=== PATIENT | female | born 1965 ===

== ENCOUNTER 2016-09-12 16:10 | Emergency (ER) | payer MEDICAID ==
[2016-09-12 16:10] VITALS: BMI 31.3
[2016-09-12 16:17] VITALS: BP 134/87; PULSE 90; RESP 16; TEMP 98.8; O2SAT 98
--- NOTE | 2016-09-12 16:43 | ED PDOC ---
Arrival/HPI - General Chief Complaint: Lower Extremity Problem/Injury Time Seen by Provider: 09/12/16 16:34 Historian: Patient - History of Present Illness Narrative History of Present Illness (Text): 09/12/16 16:34 This 51 yo female presents to this ED c/o left foot pain and swelling x 3 days. Patient denies trauma, skin rash, abscess, erythema, calf pain, lower leg edema, recent travel, recent surgical procedure, weakness, paresthesias, sob, cp , or abnormal gait. Time/Duration: Other Quality: Aching Context: Home Past Medical History - Provider Review Nursing Documentation Reviewed: Yes - Infectious Disease Hx of Infectious Diseases: None - Tetanus Immunization Tetanus Immunization: Unknown - Cardiac Hx Hypertension: Yes - Pulmonary Hx Asthma: Yes - Neurological Hx Neurological Disorder: No - HEENT Hx HEENT Disorder: No - Renal Hx Renal Disorder: No - Endocrine/Metabolic Hx Endocrine Disorders: No - Hematological/Oncological Hx Blood Disorders: No - Integumentary Hx Dermatological Disorder: No - Musculoskeletal/Rheumatological Hx Arthritis: Yes - Gastrointestinal Hx Gastrointestinal Disorders: No - Genitourinary/Gynecological Hx Genitourinary Disorders: No - Psychiatric Hx Depression: No Hx Emotional Abuse: No Hx Physical Abuse: No Hx Substance Use: No - Past Surgical History Past Surgical History: No Previous - Surgical History Other/Comment: BREAST BX - Anesthesia Hx Anesthesia: No - Suicidal Assessment Feels Threatened In Home Enviroment: No Family/Social History - Physician Review Nursing Documentation Reviewed: Yes Family/Social History: No Known Family HX Smoking Status: Never Smoked Hx Alcohol Use: No Hx Substance Use: No Hx Substance Use Treatment: No Allergies/Home Meds Allergies/Adverse Reactions: Allergies No Known Allergies Allergy (Verified 09/12/16 16:14) Home Medications: Home Meds Medication Instructions Recorded Confirmed Lisinopril [Lisinopril] 10 mg PO DAILY 08/01/14 09/12/16 Montelukast [Singulair] 10 mg PO DAILY 08/01/14 09/12/16 Review of Systems - Review of Systems Constitutional: Normal. absent: Fatigue, Weight Change, Fevers Eyes: Normal ENT: Normal Respiratory: Normal. absent: SOB, Cough, Sputum Cardiovascular: Normal Gastrointestinal: Normal Genitourinary Female: Normal Musculoskeletal: Arthralgias Skin: Normal Neurological: Normal Endocrine: Normal Hemo/Lymphatic: Normal Psychiatric: Normal Physical Exam Vital Signs Temp Pulse Resp BP Pulse Ox 09/12/16 16:14 98.8 F 90 16 134/87 98 Temperature: Afebrile Blood Pressure: Normal Pulse: Regular Respiratory Rate: Normal Appearance: Positive for: Well-Appearing, Non-Toxic, Comfortable Pain Distress: None Mental Status: Positive for: Alert and Oriented X 3 - Systems Exam Head: Present: Atraumatic, Normocephalic Pupils: Present: PERRL Extroacular Muscles: Present: EOMI Conjunctiva: Present: Normal Mouth: Present: Moist Mucous Membranes Neck: Present: Normal Range of Motion Respiratory/Chest: Present: Clear to Auscultation, Good Air Exchange. No: Respiratory Distress, Accessory Muscle Use Cardiovascular: Present: Regular Rate and Rhythm, Normal S1, S2. No: Murmurs Back: Present: Normal Inspection Upper Extremity: Present: Normal Inspection, Normal ROM, NORMAL PULSES, Neurovascularly Intact, Capillary Refill < 2s. No: Edema Lower Extremity: Present: NORMAL PULSES, Normal ROM, Tenderness (Mild tenderness over ankle joint, and medial foot. Foot arch is mild collapsed. No plantar fascia tenderness.), Neurovascularly Intact, Capillary Refill < 2 s. No : Edema, CALF TENDERNESS, Cyanosis, Opal's Sign, Erythema, Deformity, Temperature Abnormalties Neurological: Present: GCS=15, CN II-XII Intact, Speech Normal, Motor Func Grossly Intact, Normal Sensory Function, Normal Cerebellar Funct, Norm Deep Tendon Reflexes, Gait Normal, Memory Normal Skin: Present: Warm, Dry, Normal Color. No: Rashes Psychiatric: Present: Alert, Oriented x 3 Medical Decision Making ED Course and Treatment: 09/12/16 17:29 Re-evaluation. Patient feels better. Discussed results and plan with patient who expresses understanding. All questions answered and there is agreement with the plan to discharge home with instructions. Patient stable for discharge. Return if symptoms persist or worsen. Patient came c/o foot and ankle pain and swelling. Physical exam demonstrate mild tenderness and swelling on ankle joint. Sears test was negative. No calf pain, or lower leg swelling. No evidence of DVT or leg cellulitis. Ankle joint pain is most likely due to strain. Patient was recommended to return to ED if she develops swelling lower leg, calf pain, skin rash, or worsen on pain. Re-evaluation Time: 17:29 Reassessment Condition: Re-examined, Improved - RAD Interpretation Narrative RAD Interpretations (Text): 09/12/16 17:29 ankle x-rays: No Fx or sublux. Foot x-rays: No Fx or sublux. (+) bone spur Radiology Orders: 09/12/16 16:35 ANKLE LEFT 3 VIEWS ROUTINE [RAD] Stat FOOT LEFT 3 VIEWS ROUTINE [RAD] Stat - Medication Orders Current Medication Orders: Discontinued Medications Ketorolac Tromethamine (Toradol) 30 mg IM STAT STA Stop: 09/12/16 16:36 Last Admin: 09/12/16 16:40 Dose: 30 mg Disposition/Present on Arrival - Present on Arrival Any Indicators Present on Arrival: No History of DVT/PE: No History of Uncontrolled Diabetes: No Urinary Catheter: No History of Decub. Ulcer: No History Surgical Site Infection Following: None - Disposition Have Diagnosis and Disposition been Completed?: Yes Diagnosis: Foot pain, Ankle pain Disposition: HOME/ ROUTINE Disposition Time: 17:30 Patient Plan: Discharge Condition: GOOD Discharge Instructions (ExitCare): Arthralgia (ED) Additional Instructions: Call private doctor for follow up visit in 1-2 days. Take medication as instructed. Return to emergency if symptoms worsen. Remove monica bandage at bedtime. Prescriptions: Acetaminophen with Codeine [Tylenol with Codeine #3 Tablet] 1 each PO Q6H PRN # 10 tablet PRN Reason: Pain, Severe (8-10) Indomethacin [Indocin] 50 mg PO TID PRN #20 cap PRN Reason: Pain, Severe (8-10) Referrals: Anselmo Hancock MD [Primary Care Provider] - Follow up with primary Nicanor Guevara DPM [Staff Provider] - Follow up with primary Forms: WORK NOTE
--- NOTE | 2016-09-13 09:05 | RAD ---
PROCEDURE: Left Foot Radiographs. HISTORY: pain COMPARISON: None. FINDINGS: BONES: Bone alignment and mineralization are normal. No acute fracture or bone destruction. JOINTS: Normal. SOFT TISSUES: Normal. OTHER FINDINGS: None. IMPRESSION: No acute fracture or dislocation.
--- NOTE | 2016-09-13 09:06 | RAD ---
PROCEDURE: Left Ankle Radiographs. HISTORY: pain COMPARISON: None FINDINGS: BONES: Normal. No fracture. JOINTS: Normal. No osteoarthritis. Ankle mortise maintained. Talar dome intact SOFT TISSUES: There is mild medial soft tissue swelling. OTHER FINDINGS: None. IMPRESSION: No acute fracture or dislocation. Mild medial soft tissue swelling.
== END 2016-09-12 17:42 | disposition home or self-care (01) ==
LOC: ED 16:10
DX: M79.672 Pain in left foot (principal)
CPT/HCPCS: 73610; 73630; 96372; 99283; J1885

== ENCOUNTER 2017-03-27 15:56 | Emergency (ER) | payer MEDICAID ==
[2017-03-27 15:56] VITALS: BMI 31.3
[2017-03-27 16:22] VITALS: RESP 18; TEMP 98.2; O2SAT 98
--- NOTE | 2017-03-27 16:26 | ED PDOC ---
Arrival/HPI - General Time Seen by Provider: 03/27/17 16:09 Historian: Patient - History of Present Illness Narrative History of Present Illness (Text): 03/27/17 16:26 This 51 yo female presents to this ED c/o right lower back pain x 2 days. Patient stated she slipped and fell on her buttocks. Patient stated pain does not let her sleep well. Patient denies other somatic symptoms. Denies weakness, paresthesias, GI/ incontinence, saddle anesthesias, urinary retention, or abnormal gait. Time/Duration: Other (2 days) Quality: Aching Context: Home Past Medical History - Provider Review Nursing Documentation Reviewed: Yes - Infectious Disease Hx of Infectious Diseases: None - Tetanus Immunization Tetanus Immunization: Unknown - Cardiac Hx Hypertension: Yes - Pulmonary Hx Asthma: Yes - Neurological Hx Neurological Disorder: No - HEENT Hx HEENT Disorder: No - Renal Hx Renal Disorder: No - Endocrine/Metabolic Hx Endocrine Disorders: No - Hematological/Oncological Hx Blood Disorders: No - Integumentary Hx Dermatological Disorder: No - Musculoskeletal/Rheumatological Hx Arthritis: Yes - Gastrointestinal Hx Gastrointestinal Disorders: No - Genitourinary/Gynecological Hx Genitourinary Disorders: No - Psychiatric Hx Depression: No Hx Emotional Abuse: No Hx Physical Abuse: No Hx Substance Use: No - Past Surgical History Past Surgical History: No Previous - Surgical History Other/Comment: BREAST BX - Anesthesia Hx Anesthesia: No - Suicidal Assessment Feels Threatened In Home Enviroment: No Family/Social History - Physician Review Nursing Documentation Reviewed: Yes Family/Social History: Other (noncontributory) Smoking Status: Never Smoked Hx Alcohol Use: No Hx Substance Use: No Hx Substance Use Treatment: No Allergies/Home Meds Allergies/Adverse Reactions: Allergies No Known Allergies Allergy (Verified 09/12/16 16:14) Home Medications: Home Meds Medication Instructions Recorded Confirmed Lisinopril [Lisinopril] 10 mg PO DAILY 08/01/14 09/12/16 Montelukast [Singulair] 10 mg PO DAILY 08/01/14 09/12/16 Review of Systems - Review of Systems Constitutional: Normal. absent: Fatigue, Weight Change, Fevers Eyes: Normal ENT: Normal Respiratory: Normal. absent: SOB, Cough, Sputum Cardiovascular: Normal Gastrointestinal: Normal. absent: Abdominal Pain, Nausea, Vomiting Genitourinary Female: Normal. absent: Dysuria, Frequency, Hematuria, Vaginal Bleeding, Vaginal Discharge Musculoskeletal: Back Pain. absent: Neck Pain, Myalgias Skin: Normal. absent: Rash Neurological: Normal. absent: Headache, Dizziness, Focal Weakness, Gait Changes , Speech Changes, Facial Droop, Disequilibrium, Seizure Endocrine: Normal Hemo/Lymphatic: Normal Psychiatric: Normal Physical Exam Vital Signs Temp Pulse Resp BP Pulse Ox 03/27/17 17:32 78 18 128/71 98 03/27/17 16:21 98.2 F 85 18 132/75 98 Temperature: Afebrile Blood Pressure: Normal Pulse: Regular Respiratory Rate: Normal Appearance: Positive for: Well-Appearing, Non-Toxic, Comfortable Pain Distress: None Mental Status: Positive for: Alert and Oriented X 3 - Systems Exam Head: Present: Atraumatic, Normocephalic Pupils: Present: PERRL Extroacular Muscles: Present: EOMI Conjunctiva: Present: Normal Mouth: Present: Moist Mucous Membranes Neck: Present: Normal Range of Motion Respiratory/Chest: No: Tender to Palpation Abdomen: No: Tenderness Back: Present: Normal Inspection, Paraspinal Tenderness (mild right paravertebral tenderness. No vertebral point tenderness. No vertebral step off.). No: CVA Tenderness, Midline Tenderness, Pain with Leg Raise Upper Extremity: Present: Normal Inspection, Normal ROM Lower Extremity: Present: Normal Inspection, Normal ROM Neurological: Present: GCS=15, CN II-XII Intact, Speech Normal, Motor Func Grossly Intact, Normal Sensory Function, Normal Cerebellar Funct, Gait Normal Skin: Present: Warm, Dry, Normal Color. No: Rashes Psychiatric: Present: Alert, Oriented x 3, Normal Insight, Normal Concentration Medical Decision Making ED Course and Treatment: 03/27/17 18:18 Patient came c/o lower back pain after mechanical fall. Patient denies other somatic complains. LS x-rays was no fracture or subluxation. Pain has improved with toradol IM. Patient requested muscle relaxer, and pain medication but not NSAIDS. Patient was recommended to return to emergency if pain worsen. Or if new symptoms arise. Re-evaluation Time: 18:18 Reassessment Condition: Re-examined, Improved - RAD Interpretation Narrative RAD Interpretations (Text): 03/27/17 18:18 LS x-rays: No fracture or dislocation Radiology Orders: 03/27/17 16:55 LS SPINE WITH OBL > 18 YRS OLD [RAD] Stat - Medication Orders Current Medication Orders: Discontinued Medications Ketorolac Tromethamine (Toradol) 60 mg IM STAT STA Stop: 03/27/17 16:57 Last Admin: 03/27/17 17:30 Dose: 60 mg MAR Pain Assessment Document 03/27/17 17:30 CNR (Rec: 03/27/17 17:31 CNR [id number]) Pain Reassessment Is this a pain reassessment? Yes IM Administration Charges Document 03/27/17 17:30 CNR (Rec: 03/27/17 17:31 CNR [id number]) Injection Site MAR Injection Site Right Gluteus Artem Charges for Administration # of IM Administrations 1 Disposition/Present on Arrival - Present on Arrival Any Indicators Present on Arrival: No History of DVT/PE: No History of Uncontrolled Diabetes: No Urinary Catheter: No History Surgical Site Infection Following: None - Disposition Have Diagnosis and Disposition been Completed?: Yes Diagnosis: Back pain Disposition: HOME/ ROUTINE Disposition Time: 18:21 Patient Plan: Discharge Condition: IMPROVED Discharge Instructions (ExitCare): Back Pain (ED) Additional Instructions: Llame a sanchez doctor general para un seguimiento medico. [place] [facility] sido prescriptas con comida. Regrese a la emergencia si dolor aumenta . No maneje sanchez silvano o utilize machinas cuando love tomando medicamentos de dolor or relajador muscular. Prescriptions: Acetaminophen with Codeine [Tylenol with Codeine #3 Tablet] 1 each PO Q6H PRN # 10 tablet PRN Reason: Pain, Severe (8-10) Methocarbamol [Robaxin-750] 750 mg PO TID #21 tab Referrals: PO-MO Kevan Req, [Non-Staff] - Follow up with primary [facility] [Outside] - Follow up with primary [facility] [place] [Outside] - Follow up with primary Forms: [employer] (Moroccan)
[2017-03-27 17:33] VITALS: BP 128/71; PULSE 78
--- NOTE | 2017-03-28 08:02 | RAD ---
PROCEDURE: Radiographs of the Lumbar Spine. HISTORY: pain s/p fall COMPARISON: No prior. FINDINGS: BONES: Normal alignment. No listhesis. No fracture. DISC SPACES: Unremarkable. OTHER FINDINGS: None. IMPRESSION: Unremarkable radiographs of the lumbar spine.
== END 2017-03-27 18:46 | disposition home or self-care (01) ==
LOC: ED 15:56
DX: M54.5 Low back pain (principal); I10 Essential (primary) hypertension
CPT/HCPCS: 72110; 96372; 99283; J1885

== ENCOUNTER 2018-01-06 13:22 | Emergency (ER) | payer MEDICAID, OTHER ==
[2018-01-06 15:27] VITALS: BMI 32.8
[2018-01-06] MEDS ORDERED: Albuterol-Ipratrop 3 mg / 0.5 (3 ml) UD IH STA ×2 (15:57→17:25)
--- NOTE | 2018-01-06 16:46 | ED PDOC ---
Arrival/HPI - General Chief Complaint: Cough, Cold, Congestion Time Seen by Provider: 01/06/18 15:56 Historian: Patient - History of Present Illness Narrative History of Present Illness (Text): 01/06/18 16:43 52yo female with pmhx of Asthma who present with 2days history of nonproductive cough, chest congestion and fever. States she used her inhaler yesterday with mild relieve. Denies sick contact, travel, nausea, vomiting, chest pain, SOB, any other complaint. she is not steroid dependent. never intubated. Past Medical History - Provider Review Nursing Documentation Reviewed: Yes - Infectious Disease Hx of Infectious Diseases: None - Tetanus Immunization Tetanus Immunization: Unknown - Cardiac Hx Hypertension: Yes - Pulmonary Hx Asthma: Yes - Neurological Hx Neurological Disorder: No - HEENT Hx HEENT Disorder: No - Renal Hx Renal Disorder: No - Endocrine/Metabolic Hx Endocrine Disorders: No - Hematological/Oncological Hx Blood Disorders: No - Integumentary Hx Dermatological Disorder: No - Musculoskeletal/Rheumatological Hx Arthritis: Yes - Gastrointestinal Hx Gastrointestinal Disorders: No - Genitourinary/Gynecological Hx Genitourinary Disorders: No - Psychiatric Hx Depression: No Hx Emotional Abuse: No Hx Physical Abuse: No Hx Substance Use: No - Past Surgical History Past Surgical History: No Previous - Surgical History Other/Comment: BREAST BX - Anesthesia Hx Anesthesia: No - Suicidal Assessment Feels Threatened In Home Enviroment: No Family/Social History - Physician Review Nursing Documentation Reviewed: Yes Family/Social History: Unknown Family HX Smoking Status: Never Smoked Hx Alcohol Use: No Hx Substance Use: No Hx Substance Use Treatment: No Allergies/Home Meds Allergies/Adverse Reactions: Allergies No Known Allergies Allergy (Verified 01/06/18 15:24) Home Medications: Home Meds Medication Instructions Recorded Confirmed Lisinopril 10 mg PO DAILY 08/01/14 09/12/16 RX: Montelukast [Singulair] 10 mg PO DAILY 08/01/14 09/12/16 Review of Systems - Physician Review All systems were reviewed & negative as marked: Yes - Review of Systems Constitutional: Fevers Eyes: Normal ENT: Normal Respiratory: Cough Cardiovascular: Normal Gastrointestinal: Normal Genitourinary Female: Normal Musculoskeletal: Normal Skin: Normal Neurological: Normal Endocrine: Normal Hemo/Lymphatic: Normal Psychiatric: Normal Physical Exam Vital Signs Reviewed: Yes Vital Signs Temp Pulse Resp BP Pulse Ox 01/06/18 18:25 98.3 F 88 19 98 01/06/18 17:31 98.1 F 81 16 113/67 99 Temperature: Afebrile Blood Pressure: Normal Pulse: Regular Respiratory Rate: Normal Appearance: Positive for: Well-Appearing, Non-Toxic, Comfortable Pain Distress: None Mental Status: Positive for: Alert and Oriented X 3 - Systems Exam Head: Present: Atraumatic, Normocephalic Pupils: Present: PERRL Extroacular Muscles: Present: EOMI Conjunctiva: Present: Normal Mouth: Present: Moist Mucous Membranes Neck: Present: Normal Range of Motion Respiratory/Chest: Present: Good Air Exchange, Wheezes (Expiratory wheeze at the bases). No: Respiratory Distress, Accessory Muscle Use, Decreased Breath Sounds, Rales, Retracting, Rhonchi, Tachypneic Cardiovascular: Present: Regular Rate and Rhythm, Normal S1, S2. No: Murmurs Abdomen: No: Tenderness, Distention, Peritoneal Signs Back: Present: Normal Inspection Upper Extremity: Present: Normal Inspection. No: Cyanosis, Edema Lower Extremity: Present: Normal Inspection. No: Edema Neurological: Present: GCS=15, CN II-XII Intact, Speech Normal Skin: Present: Warm, Dry, Normal Color. No: Rashes Psychiatric: Present: Alert, Oriented x 3, Normal Insight, Normal Concentration Medical Decision Making ED Course and Treatment: 01/07/18 17:48 PT presented for stated history. Not hypoxic and hemodynamically stable. CXR NAD Her wheezing resolved in ED on r evaluation s/p medication. she was DC home with [facility]. Advised to continue with her albuterol inhaler as needed. Referred to her PMD - RAD Interpretation Radiology Orders: 01/06/18 16:07 CHEST PORTABLE [RAD] Stat - Medication Orders Current Medication Orders: Discontinued Medications Albuterol/Ipratropium (Duoneb 3 Mg/0.5 Mg (3 Ml) Ud) 3 ml IH STAT STA Stop: 01/06/18 15:58 Last Admin: 01/06/18 16:10 Dose: 3 ml Albuterol/Ipratropium (Duoneb 3 Mg/0.5 Mg (3 Ml) Ud) 3 ml IH STAT STA Stop: 01/06/18 17:26 Last Admin: 01/06/18 18:04 Dose: 3 ml Prednisone (Prednisone Tab) 60 mg PO STAT ONE Stop: 01/06/18 16:09 Last Admin: 01/06/18 17:30 Dose: 60 mg Disposition/Present on Arrival - Present on Arrival Any Indicators Present on Arrival: No History of DVT/PE: No History of Uncontrolled Diabetes: No Urinary Catheter: No History of Decub. Ulcer: No History Surgical Site Infection Following: None - Disposition Have Diagnosis and Disposition been Completed?: Yes Diagnosis: Asthma exacerbation Disposition: HOME/ ROUTINE Disposition Time: 18:20 Patient Plan: Discharge Condition: STABLE Discharge Instructions (ExitCare): Asthma in Adults Additional Instructions: Follow up with your Doctor Return to ED for any new or worsening symptoms Prescriptions: RX: Prednisone 50 mg PO DAILY #5 tab Referrals: Mirna Eduardo MD [Medical Doctor] - Follow up with primary Forms: [employer] (Greenlandic)
[2018-01-06 17:31] VITALS: BP 113/67
--- NOTE | 2018-01-06 17:35 | RAD ---
Date of service: 01/06/2018 HISTORY: cough/SOB COMPARISON: 11/24/2012. FINDINGS: LUNGS: The lungs are well inflated and clear. PLEURA: No significant pleural effusion identified, no pneumothorax apparent. CARDIOVASCULAR: Normal. OSSEOUS STRUCTURES: No significant abnormalities. VISUALIZED UPPER ABDOMEN: Normal. OTHER FINDINGS: None. IMPRESSION: No active pulmonary disease.
[2018-01-06 18:26] VITALS: PULSE 88; RESP 19; TEMP 98.3; O2SAT 98
== END 2018-01-06 18:26 | disposition home or self-care (01) ==
LOC: ED 13:22
DX: J45.901 Unspecified asthma with (acute) exacerbation (principal); I10 Essential (primary) hypertension

== ENCOUNTER 2018-01-28 20:35 | Emergency (ER) | payer OTHER ==
[2018-01-28 21:00] VITALS: BMI 32.8
[2018-01-28 21:03] VITALS: TEMP 97.8
[2018-01-28] MEDS ORDERED: Albuterol-Ipratrop 3 mg / 0.5 (3 ml) UD ONE (21:50)
--- NOTE | 2018-01-28 21:51 | ED PDOC ---
Arrival/HPI - General Historian: Patient - History of Present Illness Narrative History of Present Illness (Text): 01/28/18 21:48 52 year old female, whose past medical history includes asthma, presents to the emergency department with asthma exacerbation, since today. Patient states her asthma has been bothering her today. Patient informs taking her nebulizer this morning with no effect on her symptoms. Patient also informs of an associated cough. Patient denies any fever, chills, shortness of breath, chest pain, or any other complaints. Time/Duration: 24 hours <Kary Rinaldi PA-C - Last Filed: 01/29/18 16:42> <Sukumar Devi - Last Filed: 01/30/18 06:10> - General Chief Complaint: Shortness Of Breath Time Seen by Provider: 01/28/18 21:43 Past Medical History - Provider Review Nursing Documentation Reviewed: Yes - Infectious Disease Hx of Infectious Diseases: None - Tetanus Immunization Tetanus Immunization: Unknown - Cardiac Hx Cardiac Disorders: Yes Hx Hypertension: Yes - Pulmonary Hx Respiratory Disorders: Yes Hx Asthma: Yes - Neurological Hx Neurological Disorder: No - HEENT Hx HEENT Disorder: No - Renal Hx Renal Disorder: No - Endocrine/Metabolic Hx Endocrine Disorders: No - Hematological/Oncological Hx Blood Disorders: No - Integumentary Hx Dermatological Disorder: No - Musculoskeletal/Rheumatological Hx Musculoskeletal Disorders: Yes Hx Arthritis: Yes - Gastrointestinal Hx Gastrointestinal Disorders: No - Genitourinary/Gynecological Hx Genitourinary Disorders: No - Psychiatric Hx Psychophysiologic Disorder: No Hx Depression: No Hx Emotional Abuse: No Hx Physical Abuse: No Hx Substance Use: No - Past Surgical History Past Surgical History: No Previous - Surgical History Other/Comment: BREAST BX - Anesthesia Hx Anesthesia: No - Suicidal Assessment Feels Threatened In Home Enviroment: No <Kary Rinaldi PA-C - Last Filed: 01/29/18 16:42> Family/Social History - Physician Review Nursing Documentation Reviewed: Yes Family/Social History: No Known Family HX Smoking Status: Never Smoked Hx Alcohol Use: No Hx Substance Use: No Hx Substance Use Treatment: No <Kary Rinaldi PA-C - Last Filed: 01/29/18 16:42> Allergies/Home Meds <Kary Rinaldi PA-C - Last Filed: 01/29/18 16:42> <Sukumar Devi - Last Filed: 01/30/18 06:10> Allergies/Adverse Reactions: Allergies No Known Allergies Allergy (Verified 01/28/18 21:00) Home Medications: Home Meds Medication Instructions Recorded Confirmed Lisinopril 10 mg PO DAILY 08/01/14 01/28/18 RX: Montelukast [Singulair] 10 mg PO DAILY 08/01/14 01/28/18 Review of Systems - Physician Review All systems were reviewed & negative as marked: Yes - Review of Systems Constitutional: absent: Fevers Respiratory: Cough, Wheezing (asthma exacerbation). absent: SOB Cardiovascular: absent: Chest Pain <Kary Rinaldi PA-C - Last Filed: 01/29/18 16:42> Physical Exam Vital Signs Reviewed: Yes Vital Signs Temp Pulse Resp BP Pulse Ox 01/28/18 21:02 97.8 F 91 H 18 132/87 95 Temperature: Afebrile Blood Pressure: Normal Pulse: Regular Respiratory Rate: Normal Appearance: Positive for: Well-Appearing, Non-Toxic, Comfortable Pain Distress: None Mental Status: Positive for: Alert and Oriented X 3 - Systems Exam Head: Present: Atraumatic, Normocephalic Pupils: Present: PERRL Extroacular Muscles: Present: EOMI Conjunctiva: Present: Normal Mouth: Present: Moist Mucous Membranes Neck: Present: Normal Range of Motion Respiratory/Chest: Present: Wheezes (Bilateral Expiratory Wheezing) Cardiovascular: Present: Regular Rate and Rhythm, Normal S1, S2. No: Murmurs Abdomen: No: Tenderness, Distention, Peritoneal Signs Back: Present: Normal Inspection Upper Extremity: Present: Normal Inspection. No: Cyanosis, Edema Lower Extremity: Present: Normal Inspection. No: Edema Neurological: Present: GCS=15, CN II-XII Intact, Speech Normal Skin: Present: Warm, Dry, Normal Color. No: Rashes Psychiatric: Present: Alert, Oriented x 3, Normal Insight, Normal Concentration <Kary Rinaldi PA-C - Last Filed: 01/29/18 16:42> Vital Signs Temp Pulse Resp BP Pulse Ox 01/29/18 00:02 89 19 112/62 100 01/28/18 21:02 97.8 F 91 H 18 132/87 95 <Sukumar Devi - Last Filed: 01/30/18 06:10> Medical Decision Making ED Course and Treatment: 01/28/18 21:53 Impression: 52 year old female presents with asthma exacerbation. Plan: -- Duoneb -- Prednisone -- Reassess and disposition Prior Visits: Notes and results from previous visits were reviewed. Patient had a normal CXR on 01/06/18. Progress Notes: 01/28/18 23:45 On re-evaluation, patient reports improvement of symptoms, denies any CP, SOB. On exam, patient remains AAOx3, in no acute distress, speaking in full sentences. Lungs clear to auscultation, cardiac RRR, repeat neuro exam shows no focal findings. Diagnosis of acute asthma exacerbation d/w the patient. Based on history, exam and diagnostic results, plan will be for outpatient follow up. Patient instructed to follow-up with the clinic in 1-2 days without fail. Advised to take medication as prescribed. Return to the emergency room at any time for any new or worsening symptoms. Patient states she fully agrees with and understands discharge instructions. States that she agrees with the plan and disposition. Verbalized and repeated discharge instructions and plan. I have given the patient opportunity to ask any additional questions. - Medication Orders Current Medication Orders: Albuterol/Ipratropium (Duoneb 3 Mg/0.5 Mg (3 Ml) Ud) 3 ml IH Q15M [facility] Stop: 01/28/18 22:16 Discontinued Medications Prednisone (Prednisone Tab) 60 mg PO STAT STA Stop: 01/28/18 21:44 <Kary Rinaldi PA-C - Last Filed: 01/29/18 16:42> ED Course and Treatment: 01/30/18 06:10 The documented history was done by the physician product development director. The documented physical exam was done by the physician product development director. The documented procedures were done by the physician product development director, I was available for consultation during the PA/TEXTILE SCIENCE TECHNICIAN evaluation. The chart was reviewed by me, and I agree with the management and plan. - Medication Orders Current Medication Orders: Discontinued Medications Albuterol/Ipratropium (Duoneb 3 Mg/0.5 Mg (3 Ml) Ud) 3 ml IH Q15M [facility]OS[facility] Stop: 01/28/18 22:16 Last Admin: 01/28/18 22:19 Dose: 3 ml Prednisone (Prednisone Tab) 60 mg PO STAT STA Stop: 01/28/18 21:44 Last Admin: 01/28/18 22:19 Dose: 60 mg <Sukumar Devi - Last Filed: 01/30/18 06:10> - PA / TEXTILE SCIENCE TECHNICIAN / Resident Statement MD/DO has reviewed & agrees with the documentation as recorded. - Scribe Statement The provider has reviewed the documentation as recorded by the Rosa Rios Provider Scribe Attestation: All medical record entries made by the Mariibnolan were at my direction and personally dictated by me. I have reviewed the chart and agree that the record accurately reflects my personal performance of the history, physical exam, medical decision making, and the department course for this patient. I have also personally directed, reviewed, and agree with the discharge instructions and disposition. <Kary Rinaldi PA-C - Last Filed: 01/29/18 16:42> Disposition/Present on Arrival - Present on Arrival Any Indicators Present on Arrival: No History of DVT/PE: No History of Uncontrolled Diabetes: No Urinary Catheter: No History of Decub. Ulcer: No History Surgical Site Infection Following: None - Disposition Have Diagnosis and Disposition been Completed?: Yes Disposition Time: 23:45 Patient Plan: Discharge <Kary Rinaldi PA-C - Last Filed: 01/29/18 16:42> <Sukumar Devi - Last Filed: 01/30/18 06:10> - Disposition Diagnosis: Asthma Disposition: HOME/ ROUTINE Condition: IMPROVED Discharge Instructions (ExitCare): Asthma in Adults Additional Instructions: Thank you for letting us take care of you today. You were treated for asthma. The emergency medical care you received today was directed at your acute symptoms. If you were prescribed any medication, please fill it and take as directed. It may take several days for your symptoms to resolve. Return to the Emergency Department if your symptoms worsen, do not improve, or if you have any other problems. Please contact your doctor in 2 days for re-evaluation and follow up / or call one of the physicians/clinics you have been referred to that are listed on the Patient Visit Information form that is included in your discharge packet. Bring any paperwork you were given at discharge with you along with any medications you are taking to your follow up visit. Our treatment cannot replace ongoing medical care by a primary care provider (PCP) outside of the emergency department. Thank you for allowing the [facility] team to be part of your care today. Prescriptions: Methylprednisolone [Medrol Dose Pack (21 tabs)] 4 mg PO DAILY #21 mg Referrals: [facility] [Outside] - Follow up with primary Forms: [employer] (Ukrainian), WORK NOTE
[2018-01-28] MEDS: Albuterol-Ipratrop 3 mg / 0.5 (3 ml) UD IH SCH ×3 (21:53→22:19)
[2018-01-29 00:04] VITALS: BP 112/62; PULSE 89; RESP 19; O2SAT 100
== END 2018-01-29 00:02 | disposition home or self-care (01) ==
LOC: ED 20:35
DX: J45.909 Unspecified asthma, uncomplicated (principal)

== ENCOUNTER 2018-03-22 14:46 | Emergency (ER) | payer OTHER ==
[2018-03-22 14:47] VITALS: BMI 32.8
[2018-03-22 14:53] VITALS: RESP 18; TEMP 98.7
[2018-03-22] MEDS: Albuterol-Ipratrop 3 mg / 0.5 (3 ml) UD IH SCH ×3 (15:35→16:02)
--- NOTE | 2018-03-22 15:40 | ED PDOC ---
Arrival/HPI - General Historian: Patient - History of Present Illness Narrative History of Present Illness (Text): 03/22/18 15:33 52 y o female Past medical history asthma, Hypertension, presents to the emergency department complaining of worsening shortness of breath over the past 3 days. Denies any inciting factors but states that she has been walking outside in the cold weather. States she uses her Ventolin inhaler twice daily, did not increase frequency of medication since onset of symptoms. Has been doing nebulizer treatments daily for the past 3 days, last did treatment this am which helped only a little with her symptoms. States she had her last asthma exace rbation 1 mo prior and was seen in emergency department also, and given prednisone. Denies hx of being intubated in the past. Denies hx sick contacts or recent antibiotic use. Denies headache, dizziness, chest pain, n/v/d/c, abd pain, urinary complaints, or other symptoms. Past medical history: asthma, Hypertension PSurgHx: denies Allergies: NKDA Home meds: Montelukast 10 mg daily, Ventolin inhaler bid, Nebulizer prn, Lisinopril 10 mg daily Fam hx: denies Soc hx: denies smoking, EtOH, or illicit drug use PMD: [facility] Time/Duration: Other (3 days) Symptom Onset: Gradual Symptom Course: Worsening Quality: Tightness Severity Level: Severe Activities at Onset: Rest, Light Context: Exertion, Home <Ken Lindsey - Last Filed: 03/22/18 17:21> <Jose Enrique Sanchez - Last Filed: 03/23/18 13:00> - General Chief Complaint: Respiratory Distress Time Seen by Provider: 03/22/18 14:48 Past Medical History - Provider Review Nursing Documentation Reviewed: Yes - Travel History Have you recently traveled outside [place] w/in the past 3 mons?: No - Infectious Disease Hx of Infectious Diseases: None - Tetanus Immunization Tetanus Immunization: Unknown - Cardiac Hx Cardiac Disorders: Yes Hx Hypertension: Yes - Pulmonary Hx Respiratory Disorders: Yes Hx Asthma: Yes - Neurological Hx Neurological Disorder: No - HEENT Hx HEENT Disorder: No - Renal Hx Renal Disorder: No - Endocrine/Metabolic Hx Endocrine Disorders: No - Hematological/Oncological Hx Blood Disorders: No - Integumentary Hx Dermatological Disorder: No - Musculoskeletal/Rheumatological Hx Musculoskeletal Disorders: Yes Hx Arthritis: Yes - Gastrointestinal Hx Gastrointestinal Disorders: No - Genitourinary/Gynecological Hx Genitourinary Disorders: No - Psychiatric Hx Psychophysiologic Disorder: No Hx Depression: No Hx Emotional Abuse: No Hx Physical Abuse: No Hx Substance Use: No - Past Surgical History Past Surgical History: No Previous - Surgical History Other/Comment: BREAST BX - Anesthesia Hx Anesthesia: No - Suicidal Assessment Feels Threatened In Home Enviroment: No <Ken Lindsey - Last Filed: 03/22/18 17:21> Family/Social History - Physician Review Nursing Documentation Reviewed: Yes Family/Social History: No Known Family HX Smoking Status: Never Smoked Hx Alcohol Use: No Hx Substance Use: No Hx Substance Use Treatment: No <Ken Lindsey - Last Filed: 03/22/18 17:21> Allergies/Home Meds <Ken Lindsey - Last Filed: 03/22/18 17:21> <Jose Enrique Sanchez - Last Filed: 03/23/18 13:00> Allergies/Adverse Reactions: Allergies No Known Allergies Allergy (Verified 03/22/18 14:53) Home Medications: Home Meds Medication Instructions Recorded Confirmed RX: Montelukast [Singulair] 10 mg PO DAILY 08/01/14 03/22/18 RX: Lisinopril [Zestril] 10 mg PO DAILY 03/22/18 03/22/18 Review of Systems - Physician Review All systems were reviewed & negative as marked: Yes - Review of Systems Constitutional: Fatigue. absent: Fevers, Night Sweats Eyes: absent: Vision Changes Respiratory: SOB, Wheezing. absent: Cough, Sputum Cardiovascular: MARQUEZ. absent: Chest Pain, Palpitations, Edema Gastrointestinal: absent: Abdominal Pain, Stool Changes, Constipation, Diarrhea, Nausea, Vomiting Musculoskeletal: absent: Back Pain, Myalgias Skin: absent: Rash, Pruritis Neurological: absent: Headache, Dizziness, Focal Weakness Endocrine: absent: Diaphoresis Hemo/Lymphatic: absent: Adenopathy <Ken Lindsey - Last Filed: 03/22/18 17:21> Physical Exam Vital Signs Reviewed: Yes Vital Signs Temp Pulse Resp BP Pulse Ox 03/22/18 14:50 98.7 F 103 H 18 130/91 H 96 Temperature: Afebrile Blood Pressure: Hypertensive Pulse: Tachycardic Respiratory Rate: Normal Appearance: Positive for: Non-Toxic, Uncomfortable Pain Distress: None Mental Status: Positive for: Alert and Oriented X 3 - Systems Exam Head: Present: Atraumatic, Normocephalic Pupils: Present: PERRL Extroacular Muscles: Present: EOMI Conjunctiva: Present: Normal Mouth: Present: Moist Mucous Membranes Neck: Present: Normal Range of Motion. No: JVD, Lymphadenopathy Respiratory/Chest: Present: Wheezes. No: Respiratory Distress, Accessory Muscle Use (auscultated in all lung adame) Cardiovascular: Present: Normal S1, S2, Tachycardic. No: Murmurs, Rub, Gallop Abdomen: Present: Normal Bowel Sounds. No: Tenderness, Distention, Rebound, Guarding, Mass/Organomegaly Upper Extremity: Present: Normal Inspection, Normal ROM, NORMAL PULSES, Neurovascularly Intact, Capillary Refill < 2s. No: Cyanosis, Edema, Temperature Abnormalties Lower Extremity: Present: Normal Inspection, NORMAL PULSES, Normal ROM, Neurovascularly Intact, Capillary Refill < 2 s. No: Edema, CALF TENDERNESS, Temperature Abnormalties Neurological: Present: GCS=15, CN II-XII Intact, Speech Normal, Motor Func Grossly Intact, Normal Sensory Function, Normal Cerebellar Funct, Gait Normal Skin: Present: Warm, Dry, Normal Color. No: Rashes Psychiatric: Present: Alert, Oriented x 3, Normal Insight, Normal Concentration <Ken Lindsey - Last Filed: 03/22/18 17:21> Vital Signs Temp Pulse Resp BP Pulse Ox 03/22/18 14:50 98.7 F 103 H 18 130/91 H 96 <Jose Enrique Sanchez - Last Filed: 03/23/18 13:00> Medical Decision Making ED Course and Treatment: 03/22/18 15:43 52 y o female Past medical history asthma, Hypertension, presents with worsening shortness of breath x 3 days. Presenting with asthma exacerbation. Plan: -Duonebs x 3 -CXR 2 views Will continue to monitor. 03/22/18 16:15 Reassessed pt, states she is feeling better after Duoneb txs. AAOx3, speaking in coherent sentences. Pending CXR. Will continue to monitor. 03/22/18 17:21 Reassessed pt, states she is feeling much better, reports shortness of breath has improved. Wheezing much improved on lung exam. AAOx3, speaking in full sentences, no signs of respiratory distress or accessory muscle use. CXR demonstrates no active disease. Pt to be discharged to home at this time. Instructed to follow-up with PMD Dr. Eduardo within 2-3 days of ER discharge. Script given for Prednisone to be taken for the next 5 days. Instructed to continue with home asthma medications. Can use nebulizer treatments prn at home for symptoms. All questions and concerns addressed with pt at bedside and she is agreeable to plan. - RAD Interpretation Radiology Orders: 03/22/18 15:22 CHEST TWO VIEWS (PA/LAT) [RAD] Stat - Medication Orders Current Medication Orders: Albuterol/Ipratropium (Duoneb 3 Mg/0.5 Mg (3 Ml) Ud) 3 ml IH Q15M [facility] Stop: 03/22/18 16:01 <Ken Lindsey - Last Filed: 03/22/18 17:21> ED Course and Treatment: 03/22/18 16:20 Eugenio Souza is a 52 year old female who presents to the emergency department today for further evaluation of 3 day duration, worsening shortness of breath. Patients past medical history includes hypertension and asthma. In agreement with resident note, which includes further HPI details. Patient was seen and evaluated with resident, came up with plan and treatment together. - RAD Interpretation Radiology Orders: 03/22/18 15:22 CHEST TWO VIEWS (PA/LAT) [RAD] Stat - Medication Orders Current Medication Orders: Discontinued Medications Albuterol/Ipratropium (Duoneb 3 Mg/0.5 Mg (3 Ml) Ud) 3 ml IH Q15M JOSY Stop: 03/22/18 16:01 Last Admin: 03/22/18 16:02 Dose: 3 ml <Jose Enrique Sanchez - Last Filed: 03/23/18 13:00> - Scribe Statement The provider has reviewed the documentation as recorded by the Rosa Ramos Provider Scribe Attestation: All medical record entries made by the Scribe were at my direction and personally dictated by me. I have reviewed the chart and agree that the record accurately reflects my personal performance of the history, physical exam, medical decision making, and the department course for this patient. I have also personally directed, reviewed, and agree with the discharge instructions and disposition. <Jose Enrique Sanchez - Last Filed: 03/23/18 13:00> Disposition/Present on Arrival - Present on Arrival Any Indicators Present on Arrival: No History of DVT/PE: No History of Uncontrolled Diabetes: No Urinary Catheter: No History of Decub. Ulcer: No History Surgical Site Infection Following: None - Disposition Have Diagnosis and Disposition been Completed?: Yes Disposition Time: 17:26 Patient Plan: Discharge <Ken Lindsey - Last Filed: 03/22/18 17:21> <Jose Enrique Sanchez - Last Filed: 03/23/18 13:00> - Disposition Diagnosis: Asthma exacerbation Disposition: HOME/ ROUTINE Condition: IMPROVED Discharge Instructions (ExitCare): Asthma, Adult (DC), Avoiding Asthma Triggers Print Language: WOLOF Additional Instructions: Please follow-up with [facility] (Dr. Eduardo) within 2-3 days of ER discharge. Please resume home asthma medications as prescribed. Please take Prednisone as prescribed for the next 5 days. Please try to avoid asthma triggers. Should your symptoms recur or worsen, please call your primary care physician or report to your nearest emergency department. EUGENIO SOUZA, thank you for letting us take care of you today. Your provider was Jose Enrique Sanchez DO and you were treated for ASTHMA. The emergency medical care you received today was directed at your acute symptoms. If you were prescribed any medication, please fill it and take as directed. It may take several days for your symptoms to resolve. Return to the Emergency Department if your symptoms worsen, do not improve, or if you have any other problems. Please contact your doctor or call one of the physicians/clinics you have been referred to that are listed on the Patient Visit Information form that is included in your discharge packet. Bring any paperwork you were given at discharge with you along with any medications you are taking to your follow up visit. Our treatment cannot replace ongoing medical care by a primary care provider outside of the emergency department. Thank you for allowing the [facility] team to be part of your care today. If you had an X-Ray or CT scan: A Radiologist will review the ED reading if any change in treatment is needed we will contact you. If you had a blood, urine, or wound culture: It will take several days for the results, if any change in treatment is needed we will contact you. If you had an STI test: It will take 48 hours for the results. Please call after 1 week if you have not heard back. Prescriptions: predniSONE [Prednisone] 20 mg PO BID #10 tab Referrals: FAMILY PROVIDER,NO [Primary Care Provider] - Follow up with primary Mirna Eduardo MD [Medical Doctor] - Follow up with primary Forms: [employer] (Setswana)
[2018-03-22 16:51] VITALS: BP 150/77; PULSE 91; O2SAT 98
--- NOTE | 2018-03-22 16:56 | RAD ---
Date of service: 03/22/2018 HISTORY: shortness of breath, hx asthma COMPARISON: 01/06/2018 TECHNIQUE: Chest PA and lateral FINDINGS: LUNGS: No active pulmonary disease. PLEURA: No significant pleural effusion identified. No pneumothorax apparent. CARDIOVASCULAR: No aortic atherosclerotic calcification present. Normal cardiac size. No pulmonary vascular congestion. OSSEOUS STRUCTURES: No significant abnormalities. VISUALIZED UPPER ABDOMEN: Normal. OTHER FINDINGS: None. IMPRESSION: No active disease.
== END 2018-03-22 17:38 | disposition home or self-care (01) ==
LOC: ED 14:46
DX: J45.901 Unspecified asthma with (acute) exacerbation (principal)

== ENCOUNTER 2018-04-20 09:35 | Emergency (ER) | payer OTHER ==
[2018-04-20 09:36] VITALS: BMI 32.8
[2018-04-20 09:43] VITALS: BP 157/93; PULSE 80; RESP 18; TEMP 98; O2SAT 98
--- NOTE | 2018-04-20 09:54 | ED PDOC ---
Arrival/HPI - General Chief Complaint: Finger,Hand,&Wrist Time Seen by Provider: 04/20/18 09:48 Historian: Patient - History of Present Illness Time/Duration: Prior to Arrival Symptom Onset: Sudden Symptom Course: Unchanged, Other Severity Level: Moderate Associated Symptoms (Text): 04/20/18 09:53 slammed her nondominant left distal index finger in a car door just prior to arrival. Large subungual hematoma. Past Medical History - Infectious Disease Hx of Infectious Diseases: None - Tetanus Immunization Tetanus Immunization: Unknown - Reproductive Menopause: Yes - Cardiac Hx Cardiac Disorders: Yes Hx Hypertension: Yes - Pulmonary Hx Respiratory Disorders: Yes Hx Asthma: Yes - Neurological Hx Neurological Disorder: No - HEENT Hx HEENT Disorder: No - Renal Hx Renal Disorder: No - Endocrine/Metabolic Hx Endocrine Disorders: No - Hematological/Oncological Hx Blood Disorders: No - Integumentary Hx Dermatological Disorder: No - Musculoskeletal/Rheumatological Hx Musculoskeletal Disorders: Yes Hx Arthritis: Yes - Gastrointestinal Hx Gastrointestinal Disorders: No - Genitourinary/Gynecological Hx Genitourinary Disorders: No - Psychiatric Hx Psychophysiologic Disorder: No Hx Depression: No Hx Emotional Abuse: No Hx Physical Abuse: No Hx Substance Use: No - Past Surgical History Past Surgical History: No Previous - Surgical History Other/Comment: BREAST BX - Anesthesia Hx Anesthesia: No - Suicidal Assessment Feels Threatened In Home Enviroment: No Family/Social History - Physician Review Nursing Documentation Reviewed: Yes Family/Social History: Unknown Family HX Smoking Status: Never Smoked Hx Alcohol Use: No Hx Substance Use: No Hx Substance Use Treatment: No Allergies/Home Meds Allergies/Adverse Reactions: Allergies No Known Allergies Allergy (Verified 04/20/18 09:43) Home Medications: Home Meds Medication Instructions Recorded Confirmed Montelukast [Singulair] 10 mg PO DAILY 08/01/14 04/20/18 Lisinopril [Zestril] 10 mg PO DAILY 03/22/18 04/20/18 Review of Systems - Physician Review All systems were reviewed & negative as marked: Yes Physical Exam Vital Signs Temp Pulse Resp BP Pulse Ox 04/20/18 09:41 98 F 80 18 157/93 H 98 Temperature: Afebrile Blood Pressure: Hypertensive Pulse: Regular Respiratory Rate: Normal Appearance: Positive for: Well-Appearing, Non-Toxic, Uncomfortable Pain Distress: Moderate Mental Status: Positive for: Alert and Oriented X 3 - Systems Exam Upper Extremity: Present: Normal ROM, NORMAL PULSES, Tenderness, Neurovascularly Intact, Other (large left index finger subungual hematoma with tenderness.). No: Normal Inspection, Cyanosis, Edema, Swelling, Erythema, Deformity Medical Decision Making ED Course and Treatment: 04/20/18 10:22 nail trepanation with electrocautery. - RAD Interpretation Radiology Orders: 04/20/18 09:50 HAND RIGHT 2ND DIGIT (FINGER) [RAD] Stat 04/20/18 09:52 HAND LEFT 2ND DIGIT (FINGER) [RAD] Stat x-ray left index finger shows no fracture or dislocation. Grain Elevator Clerk: ED Physician Disposition/Present on Arrival - Present on Arrival Any Indicators Present on Arrival: No History of DVT/PE: No History of Uncontrolled Diabetes: No Urinary Catheter: No History of Decub. Ulcer: No History Surgical Site Infection Following: None - Disposition Have Diagnosis and Disposition been Completed?: Yes Diagnosis: Subungual hematoma of finger, Finger contusion Disposition: HOME/ ROUTINE Disposition Time: 10:23 Patient Plan: Discharge Condition: GOOD Discharge Instructions (ExitCare): Contusion (DC), Common Finger Injuries (DC) Additional Instructions: Rest ice and elevation. Tylenol or Advil as directed on bottle as needed. Follow-up with PMD. Follow up in ER as needed. Forms: [employer] ([place])
--- NOTE | 2018-04-20 11:31 | RAD ---
PROCEDURE: Left Hand and 2nd digit radiographs. HISTORY: trauma COMPARISON: None. FINDINGS: BONES: Normal. No fracture. JOINTS: Normal. No osteoarthritic changes. SOFT TISSUES: Normal. OTHER FINDINGS: None. IMPRESSION: Negative study
== END 2018-04-20 10:30 | disposition home or self-care (01) ==
LOC: ED 09:35
DX: S60.022A Contusion of left index finger without damage to nail, initial encounter (principal); W23.0XXA Caught, crushed, jammed, or pinched between moving objects, initial encounter

== ENCOUNTER 2018-05-11 17:02 | Emergency (ER) | payer OTHER ==
[2018-05-11 17:02] VITALS: BMI 32.8
[2018-05-11] MEDS ORDERED: Lidocaine 5% Patch TD STA (17:55)
--- NOTE | 2018-05-11 18:21 | ED PDOC ---
Arrival/HPI - General Chief Complaint: Back Pain Time Seen by Provider: 05/11/18 17:42 Historian: Patient - History of Present Illness Narrative History of Present Illness (Text): 05/11/18 18:14 53-year-old female reports four-day history of pain in the lower back, beginning morning when she bent forward and put on her shoes. Patient states that since then she has had pain, worse with movement, taking Motrin without i mprovement. Patient denies any radiation of pain, trauma, injury, urinary symptoms. Otherwise: (-) paresthesias, (-) weakness, (-) acute bowel or bladder dysfunction, (-) fever. Has history of prior back problem. PMD none Past Medical History - Infectious Disease Hx of Infectious Diseases: None - Tetanus Immunization Tetanus Immunization: Unknown - Cardiac Hx Cardiac Disorders: Yes Hx Hypertension: Yes - Pulmonary Hx Respiratory Disorders: Yes Hx Asthma: Yes - Neurological Hx Neurological Disorder: No - HEENT Hx HEENT Disorder: No - Renal Hx Renal Disorder: No - Endocrine/Metabolic Hx Endocrine Disorders: No - Hematological/Oncological Hx Blood Disorders: No - Integumentary Hx Dermatological Disorder: No - Musculoskeletal/Rheumatological Hx Musculoskeletal Disorders: Yes Hx Arthritis: Yes - Gastrointestinal Hx Gastrointestinal Disorders: No - Genitourinary/Gynecological Hx Genitourinary Disorders: No - Psychiatric Hx Psychophysiologic Disorder: No Hx Depression: No Hx Emotional Abuse: No Hx Physical Abuse: No Hx Substance Use: No - Past Surgical History Past Surgical History: No Previous - Surgical History Other/Comment: BREAST BX - Anesthesia Hx Anesthesia: No Hx Anesthesia Reactions: No Hx Malignant Hyperthermia: No - Suicidal Assessment Feels Threatened In Home Enviroment: No Family/Social History Family/Social History: No Known Family HX Smoking Status: Never Smoked Hx Alcohol Use: No Hx Substance Use: No Hx Substance Use Treatment: No Allergies/Home Meds Allergies/Adverse Reactions: Allergies No Known Allergies Allergy (Verified 04/20/18 09:43) Home Medications: Home Meds Medication Instructions Recorded Confirmed Montelukast [Singulair] 10 mg PO DAILY 08/01/14 04/20/18 Lisinopril [Zestril] 10 mg PO DAILY 03/22/18 04/20/18 Review of Systems - Review of Systems Constitutional: absent: Fatigue, Fevers Respiratory: absent: SOB, Cough Cardiovascular: absent: Chest Pain, Palpitations Gastrointestinal: absent: Abdominal Pain, Diarrhea, Vomiting Genitourinary Female: absent: Dysuria, Frequency Musculoskeletal: Back Pain. absent: Arthralgias Skin: absent: Rash, Pruritis, Skin Lesions Neurological: absent: Headache, Dizziness Physical Exam - Physical Exam Narrative Physical Exam (Text): 05/11/18 18:21 GENERAL APPEARANCE: Patient is awake, alert, oriented x 3, in mild painful distress. SKIN: Warm, dry; (-) cyanosis. EYES: (-) conjunctival pallor. ENMT: Mucous membranes moist. NECK: (-) tenderness, (-) stiffness, (-) lymphadenopathy. CHEST AND RESPIRATORY: (-) rales, (-) rhonchi, (-) wheezes; breath sounds equal bilaterally. HEART AND CARDIOVASCULAR: (-) irregularity; (-) murmur, (-) gallop. ABDOMEN AND GI: Soft; (-) tenderness; (-) palpable mass. BACK: (+) Diffusely tender paralumbar area, (+) mild spasm, (-) direct bony tenderness, (-) deformity. Straight leg raising (-) bilaterally. EXTREMITIES: (-) deformity. Distal pulses good bilaterally. NEURO AND PSYCH: Mental status as above. Intact sensation bilaterally; normal strength in extension of the knees, plantar and dorsiflexion of the toes. Medical Decision Making ED Course and Treatment: 05/11/18 18:22 Plan : - toradol IM - flexeril PO - lidoderm patch - reassess and disposition On reevaluation, patient reports improvement of pain. On exam, patient remains awake alert and oriented 3 in no acute distress. Repeat neuro exam shows no focal findings. Patient able to ambulate with a steady gait. Advised to follow up with referral provided in 1-2 days without fail. Advised to take medication as prescribed. Return to the emergency room at any time for any new or worsening symptoms. Patient states she fully agrees with and understands discharge instructions. States that she agrees with the plan and disposition. Verbalized and repeated discharge instructions and plan. I have given the patient opportunity to ask any additional questions. - Medication Orders Current Medication Orders: Discontinued Medications Cyclobenzaprine HCl (Flexeril) 10 mg PO STAT STA Stop: 05/11/18 17:56 Ketorolac Tromethamine (Toradol) 60 mg IM STAT STA Stop: 05/11/18 17:55 Lidocaine (Lidoderm) 1 ea TD STAT STA Stop: 05/11/18 17:56 - PA / ASSISTANT CASE MANAGER / Resident Statement MD/DO has reviewed & agrees with the documentation as recorded. Disposition/Present on Arrival - Present on Arrival Any Indicators Present on Arrival: No History of DVT/PE: No History of Uncontrolled Diabetes: No Urinary Catheter: No History of Decub. Ulcer: No History Surgical Site Infection Following: None - Disposition Have Diagnosis and Disposition been Completed?: Yes Diagnosis: Low back pain Disposition: HOME/ ROUTINE Disposition Time: 18:45 Patient Plan: Discharge Condition: STABLE Discharge Instructions (ExitCare): Low Back Pain in Adults Print Language: JAPANESE Additional Instructions: Thank you for letting us take care of you today. You were treated for low back pain. The emergency medical care you received today was directed at your acute s ymptoms. If you were prescribed any medication, please fill it and take as directed. It may take several days for your symptoms to resolve. Return to the Emergency Department if your symptoms worsen, do not improve, or if you have any other problems. Please the clinic in 2 days for re-evaluation and follow up. Bring any paperwork you were given at discharge with you along with any medications you are taking to your follow up visit. Our treatment cannot replace ongoing medical care by a primary care provider (PCP) outside of the emergency department. Thank you for allowing the [facility] team to be part of your care today. Prescriptions: Cyclobenzaprine [Cyclobenzaprine HCl] 10 mg PO TID PRN #15 tab PRN Reason: Muscle Spasm Meloxicam [Mobic] 15 mg PO DAILY PRN #30 tab PRN Reason: Pain, Moderate (4-7) Referrals: PCP,NO [Primary Care Provider] - Follow up with primary [facility] [place]] - Follow up with primary Forms: [employer] (Telugu), WORK NOTE
[2018-05-11 19:33] VITALS: RESP 18; O2SAT 99
[2018-05-11 19:35] VITALS: BP 118/78; PULSE 72; TEMP 98
== END 2018-05-11 19:20 | disposition home or self-care (01) ==
LOC: ED 17:02
DX: M54.5 Low back pain (principal); I10 Essential (primary) hypertension
CPT/HCPCS: 96372; 99283; J1885

== ENCOUNTER 2018-07-29 17:36 | Emergency (ER) | payer OTHER ==
[2018-07-29 17:36] VITALS: BMI 32.8
[2018-07-29 17:47] VITALS: BP 124/81; PULSE 95; RESP 18; TEMP 98.7; O2SAT 99
--- NOTE | 2018-07-29 18:18 | ED PDOC ---
Arrival/HPI - General Chief Complaint: Shortness Of Breath Time Seen by Provider: 07/29/18 17:44 Historian: Patient - History of Present Illness Narrative History of Present Illness (Text): 07/29/18 18:19 53 year old female, whose past medical history includes asthma, presents to the emergency department with asthma exacerbation for the past 2 days. Patient informs taking her nebulizer morning with no effect on her symptoms. Patient also informs of an associated dry cough. Patient denies any fever, chills, shortness of breath, chest pain, recent travel, or any other complaints. Time/Duration: < week Symptom Onset: Gradual Symptom Course: Unchanged Activities at Onset: Light Context: Home Past Medical History - Provider Review Nursing Documentation Reviewed: Yes - Infectious Disease Hx of Infectious Diseases: None - Tetanus Immunization Tetanus Immunization: Unknown - Reproductive Menopause: Yes - Cardiac Hx Cardiac Disorders: Yes Hx Hypertension: Yes - Pulmonary Hx Respiratory Disorders: Yes Hx Asthma: Yes - Neurological Hx Neurological Disorder: No - HEENT Hx HEENT Disorder: No - Renal Hx Renal Disorder: No - Endocrine/Metabolic Hx Endocrine Disorders: No - Hematological/Oncological Hx Blood Disorders: No - Integumentary Hx Dermatological Disorder: No - Musculoskeletal/Rheumatological Hx Musculoskeletal Disorders: Yes Hx Arthritis: Yes - Gastrointestinal Hx Gastrointestinal Disorders: No - Genitourinary/Gynecological Hx Genitourinary Disorders: No - Psychiatric Hx Psychophysiologic Disorder: No Hx Depression: No Hx Emotional Abuse: No Hx Physical Abuse: No Hx Substance Use: No - Past Surgical History Past Surgical History: No Previous - Surgical History Other/Comment: BREAST BX - Anesthesia Hx Anesthesia: No Hx Anesthesia Reactions: No Hx Malignant Hyperthermia: No - Suicidal Assessment Feels Threatened In Home Enviroment: No Family/Social History - Physician Review Nursing Documentation Reviewed: Yes Family/Social History: Unknown Family HX Smoking Status: Never Smoked Hx Alcohol Use: No Hx Substance Use: No Hx Substance Use Treatment: No Allergies/Home Meds Allergies/Adverse Reactions: Allergies No Known Allergies Allergy (Verified 04/20/18 09:43) Home Medications: Home Meds Medication Instructions Recorded Confirmed Montelukast [Singulair] 10 mg PO DAILY 08/01/14 04/20/18 Lisinopril [Zestril] 10 mg PO DAILY 03/22/18 04/20/18 Review of Systems - Physician Review All systems were reviewed & negative as marked: Yes - Review of Systems Constitutional: absent: Fevers Respiratory: Cough. absent: SOB Cardiovascular: absent: Chest Pain Gastrointestinal: absent: Abdominal Pain, Nausea, Vomiting Musculoskeletal: absent: Back Pain, Neck Pain Neurological: absent: Headache, Dizziness Endocrine: absent: Diaphoresis Physical Exam Vital Signs Reviewed: Yes Vital Signs Temp Pulse Resp BP Pulse Ox 07/29/18 17:43 98.7 F 95 H 18 124/81 99 Temperature: Afebrile Blood Pressure: Normal Pulse: Regular Respiratory Rate: Normal Appearance: Positive for: Well-Appearing, Non-Toxic, Comfortable Pain Distress: None Mental Status: Positive for: Alert and Oriented X 3, other (speaking in full sentences ) - Systems Exam Head: Present: Atraumatic, Normocephalic Pupils: Present: PERRL Extroacular Muscles: Present: EOMI Conjunctiva: Present: Normal Mouth: Present: Moist Mucous Membranes Pharnyx: Present: Normal. No: ERYTHEMA, EXUDATE Neck: Present: Normal Range of Motion. No: Meningeal Signs, Lymphadenopathy Respiratory/Chest: Present: Wheezes (+b/l inspiratory and expiratory wheezing throughtout the lungs). No: Respiratory Distress, Accessory Muscle Use, Rales, Rhonchi Cardiovascular: Present: Regular Rate and Rhythm, Normal S1, S2. No: Murmurs Back: Present: Normal Inspection Upper Extremity: Present: Normal Inspection. No: Cyanosis, Edema Lower Extremity: Present: Normal Inspection. No: Edema Neurological: Present: GCS=15, CN II-XII Intact, Speech Normal Skin: Present: Warm, Dry, Normal Color. No: Rashes Psychiatric: Present: Alert, Oriented x 3, Normal Insight, Normal Concentration Medical Decision Making ED Course and Treatment: 07/29/18 18:16 Impression: 53 year old female presents to the emergency department with asthma exacerbation for the past 2 days. Differential Diagnosis included but are not limited to: Plan: -- Chest X-ray -- Duoneb x3 -- SOLU-Medrol -- Influenza AB -- Reassess and disposition Prior Visits: Notes and results from previous visits were reviewed. Progress Notes: CXR : NAD, as read by PA. Influenza : negative. 07/29/18 20:00 On reevaluation, patient reports some improvement of symptoms. On exam, patient remains awake alert and oriented 3 in no acute distress, speaking in full sentences. Neck is supple, lungs : +b/l expiratory wheezing still present, cardiac regular rate and rhythm. Duoneb x2 ordered. 07/29/18 21:15 On 2nd reevaluation, patient reports significant improvement of symptoms, denies any CP or SOB. On exam, patient still in no acute distress, she is smiling, is cheerful and in good spirits, states that she is ready to go home. Lungs are CTA without any wheezing. Advised to follow up with primary care physician in 1-2 days without fail. Advised to take medication as prescribed, and to continue at home albuterol neb q4-6h as needed. Return to the emergency room at any time for any new or worsening symptoms. Patient states she fully agrees with and understands discharge instructions. States that she agrees with the plan and disposition. Verbalized and repeated discharge instructions and plan. I have given the patient opportunity to ask any additional questions. - RAD Interpretation Radiology Orders: 07/29/18 17:59 CHEST ONE VIEW [RAD] Stat - Medication Orders Current Medication Orders: Albuterol/Ipratropium (Duoneb 3 Mg/0.5 Mg (3 Ml) Ud) 3 ml IH Q15M JOSY Stop: 07/29/18 18:31 Discontinued Medications Methylprednisolone (Solu-Medrol) 125 mg IM STAT STA Stop: 07/29/18 18:00 - PA / LIVESTOCK RANCHER / Resident Statement / has reviewed & agrees with the documentation as recorded. / has examined the patient and agrees with the treatment plan. - Scribe Statement The provider has reviewed the documentation as recorded by the Rosa Grayson All medical record entries made by the Rosa were at my direction and personally dictated by me. I have reviewed the chart and agree that the record accurately reflects my personal performance of the history, physical exam, medical decision making, and the department course for this patient. I have also personally directed, reviewed, and agree with the discharge instructions and disposition. Disposition/Present on Arrival - Present on Arrival Any Indicators Present on Arrival: No History of DVT/PE: No History of Uncontrolled Diabetes: No Urinary Catheter: No History of Decub. Ulcer: No History Surgical Site Infection Following: None - Disposition Have Diagnosis and Disposition been Completed?: Yes Diagnosis: Acute asthma exacerbation, Cough Disposition: HOME/ ROUTINE Disposition Time: 21:15 Patient Plan: Discharge Patient Problems: Current Active Problems Problem Status Onset Acute asthma exacerbation Acute Cough Acute Condition: STABLE Discharge Instructions (ExitCare): Asthma, Adult (DC), Cough, Adult (DC) Additional Instructions: Thank you for letting us take care of you today. You were treated for acute asthma, cough. The emergency medical care you received today was directed at your acute symptoms. If you were prescribed any medication, please fill it and take as directed. It may take several days for your symptoms to resolve. Return to the Emergency Department if your symptoms worsen, do not improve, or if you have any other problems. Please contact your doctor in 2 days for re-evaluation and follow up. Bring any paperwork you were given at discharge with you along with any medications you are taking to your follow up visit. Our treatment cannot replace ongoing medical care by a primary care provider (PCP) outside of the emergency department. Thank you for allowing the [facility] team to be part of your care today. If you had an X-Ray : A Radiologist will review the ED reading if any change in treatment is needed we will contact you. Prescriptions: predniSONE [predniSONE Tab] 40 mg PO DAILY #8 tab Forms: [employer] ([employer]), WORK NOTE
[2018-07-29] MEDS: Albuterol-Ipratrop 3 mg / 0.5 (3 ml) UD IH SCH ×4 (18:19→20:28)
--- NOTE | 2018-07-30 09:46 | RAD ---
Date of service: 07/29/2018 PROCEDURE: CHEST RADIOGRAPH, 1 VIEW HISTORY: cough COMPARISON: None available. FINDINGS: LUNGS: Clear. PLEURA: No pneumothorax or pleural fluid seen. CARDIOVASCULAR: No aortic atherosclerotic calcification present. Normal. OSSEOUS STRUCTURES: No significant abnormalities. VISUALIZED UPPER ABDOMEN: Normal. OTHER FINDINGS: None. IMPRESSION: No active disease.
== END 2018-07-29 23:31 | disposition home or self-care (01) ==
LOC: ED 17:36
DX: J45.901 Unspecified asthma with (acute) exacerbation (principal); I10 Essential (primary) hypertension
CPT/HCPCS: 71045; 81025; 87804; 96372; 99284; J2930

== ENCOUNTER 2018-08-19 17:53 | Emergency (ER) | payer OTHER ==
[2018-08-19 18:02] VITALS: BMI 32.3
[2018-08-19 18:03] VITALS: RESP 18
--- NOTE | 2018-08-19 18:25 | ED PDOC ---
Arrival/HPI - General Chief Complaint: Shortness Of Breath Time Seen by Provider: 08/19/18 17:59 Historian: Patient - History of Present Illness Narrative History of Present Illness (Text): 08/19/18 18:22 53 year old female, with past medical history of asthma, presents to the emergency department c/o productive cough, R upper back pain, which she describes as pain in her lungs, and wheezing x 2 days. Patient states that she has had prior visits to this ER for asthma exacerbation. Patient denies any fever, chills, shortness of breath, chest pain, recent travel, leg pain/swelling, or any other complaints. Past Medical History - Infectious Disease Hx of Infectious Diseases: None - Tetanus Immunization Tetanus Immunization: Unknown - Cardiac Hx Cardiac Disorders: Yes Hx Hypertension: Yes - Pulmonary Hx Respiratory Disorders: Yes Hx Asthma: Yes - Neurological Hx Neurological Disorder: No - HEENT Hx HEENT Disorder: No - Renal Hx Renal Disorder: No - Endocrine/Metabolic Hx Endocrine Disorders: No - Hematological/Oncological Hx Blood Disorders: No - Integumentary Hx Dermatological Disorder: No - Musculoskeletal/Rheumatological Hx Musculoskeletal Disorders: Yes Hx Arthritis: Yes - Gastrointestinal Hx Gastrointestinal Disorders: No - Genitourinary/Gynecological Hx Genitourinary Disorders: No - Psychiatric Hx Psychophysiologic Disorder: No Hx Depression: No Hx Emotional Abuse: No Hx Physical Abuse: No Hx Substance Use: No - Past Surgical History Past Surgical History: No Previous - Surgical History Other/Comment: BREAST BX - Anesthesia Hx Anesthesia: No Hx Anesthesia Reactions: No Hx Malignant Hyperthermia: No - Suicidal Assessment Feels Threatened In Home Enviroment: No Family/Social History Family/Social History: No Known Family HX Smoking Status: Never Smoked Hx Alcohol Use: No Hx Substance Use: No Hx Substance Use Treatment: No Allergies/Home Meds Allergies/Adverse Reactions: Allergies No Known Allergies Allergy (Verified 08/19/18 18:03) Home Medications: Home Meds Medication Instructions Recorded Confirmed Montelukast [Singulair] 10 mg PO DAILY 08/01/14 04/20/18 Lisinopril [Zestril] 10 mg PO DAILY 03/22/18 04/20/18 Review of Systems - Review of Systems Constitutional: absent: Fatigue, Fevers Respiratory: Cough, Wheezing. absent: SOB Cardiovascular: absent: Chest Pain, Palpitations, Edema Gastrointestinal: absent: Abdominal Pain, Diarrhea, Vomiting Musculoskeletal: Back Pain. absent: Arthralgias, Neck Pain Skin: absent: Rash, Pruritis, Skin Lesions Neurological: absent: Headache, Dizziness Physical Exam Vital Signs Temp Pulse Resp BP Pulse Ox 08/19/18 18:02 98.2 F 97 H 18 155/99 H 96 Temperature: Afebrile Blood Pressure: Normal Pulse: Regular Respiratory Rate: Normal Appearance: Positive for: Well-Appearing, Non-Toxic, Comfortable Pain Distress: None Mental Status: Positive for: Alert and Oriented X 3 - Systems Exam Head: Present: Atraumatic, Normocephalic Pupils: Present: PERRL Extroacular Muscles: Present: EOMI Conjunctiva: Present: Normal Mouth: Present: Moist Mucous Membranes Neck: Present: Normal Range of Motion. No: Meningeal Signs, Lymphadenopathy Respiratory/Chest: Present: Clear to Auscultation, Good Air Exchange, Wheezes (+b/l expiratory wheezing). No: Respiratory Distress, Accessory Muscle Use Cardiovascular: Present: Regular Rate and Rhythm, Normal S1, S2. No: Murmurs Abdomen: No: Tenderness, Distention, Peritoneal Signs Back: Present: Normal Inspection Upper Extremity: Present: Normal Inspection. No: Cyanosis, Edema Lower Extremity: Present: Normal Inspection. No: Edema Neurological: Present: GCS=15, CN II-XII Intact, Speech Normal Skin: Present: Warm, Dry, Normal Color. No: Rashes Psychiatric: Present: Alert, Oriented x 3, Normal Insight, Normal Concentration Medical Decision Making ED Course and Treatment: 08/19/18 18:21 Plan : - CXR - Prednisone - Duoneb x3 CXR : NAD. 08/19/18 19:50 On re-evaluation, patient still reports wheezing. On exam, lungs : +b/l expira tory wheezing. Another 3 duonebs ordered. 08/19/18 21:42 On reevaluation, patient reports improvement of symptoms, denies any shortness of breath, chest pain or wheezing. On exam, patient remains awake alert and oriented 3 in no acute distress. Lungs are clear to auscultation, cardiac regular rate and rhythm. Advised to follow up with the clinic in 1-2 days without fail. Advised to take medication as prescribed. Return to the emergency room at any time for any new or worsening symptoms. Patient states she fully agrees with and understands discharge instructions. States that she agrees with the plan and disposition. Verbalized and repeated discharge instructions and plan. I have given the patient opportunity to ask any additional questions. - RAD Interpretation Radiology Orders: 08/19/18 18:20 CHEST TWO VIEWS (PA/LAT) [RAD] Stat - PA / COMBAT SYSTEMS ENGINEER / Resident Statement MD/DO has reviewed & agrees with the documentation as recorded. Disposition/Present on Arrival - Present on Arrival Any Indicators Present on Arrival: No History of DVT/PE: No History of Uncontrolled Diabetes: No Urinary Catheter: No History of Decub. Ulcer: No History Surgical Site Infection Following: None - Disposition Have Diagnosis and Disposition been Completed?: Yes Diagnosis: Acute asthma Disposition: HOME/ ROUTINE Disposition Time: 21:00 Patient Plan: Discharge Patient Problems: Current Active Problems Problem Status Onset Acute asthma Acute Condition: STABLE Discharge Instructions (ExitCare): Asthma, Adult (DC) Print Language: BOTSWANAN Additional Instructions: Thank you for letting us take care of you today. You were treated for acute asthma. The emergency medical care you received today was directed at your acute symptoms. If you were prescribed any medication, please fill it and take as directed. It may take several days for your symptoms to resolve. Return to the Emergency Department if your symptoms worsen, do not improve, or if you have any other problems. Please contact your doctor in 2 days for re-evaluation and follow up / or call one of the physicians/clinics you have been referred to that are listed on the Patient Visit Information form that is included in your discharge packet. Bring any paperwork you were given at discharge with you along with any medications you are taking to your follow up visit. Our treatment cannot replace ongoing medical care by a primary care provider (PCP) outside of the emergency department. Thank you for allowing the [facility] team to be part of your care today. If you had an X-Ray : A Radiologist will review the ED reading if any change in treatment is needed we will contact you. Prescriptions: Albuterol HFA [Ventolin HFA 90 mcg/actuation (8 g)] 2 puff IH [id number] #1 puff Albuterol 0.083% [Albuterol Sulfate 3 Ml] 3 ml IH Q4 #100 neb predniSONE [predniSONE Tab] 40 mg PO DAILY #8 tab Referrals: [facility] at [facility] [place] [Outside] - Follow up with primary Forms: [employer] (Libyan), WORK NOTE
[2018-08-19] MEDS: Albuterol-Ipratrop 3 mg / 0.5 (3 ml) UD IH SCH ×6 (18:54→20:47)
[2018-08-19 22:20] VITALS: BP 140/66; PULSE 87; TEMP 98; O2SAT 100
--- NOTE | 2018-08-20 08:04 | RAD ---
Date of service: 08/19/2018 HISTORY: cough COMPARISON: 07/29/2018 TECHNIQUE: Chest PA and lateral views FINDINGS: LUNGS: No active pulmonary disease. PLEURA: No significant pleural effusion identified. No pneumothorax apparent. CARDIOVASCULAR: No aortic atherosclerotic calcification present. Normal cardiac size. No pulmonary vascular congestion. OSSEOUS STRUCTURES: No significant abnormalities. VISUALIZED UPPER ABDOMEN: Normal. OTHER FINDINGS: None. IMPRESSION: No active disease.
== END 2018-08-19 22:20 | disposition home or self-care (01) ==
LOC: ED 17:53
DX: J45.909 Unspecified asthma, uncomplicated (principal); I10 Essential (primary) hypertension

== ENCOUNTER 2018-09-09 20:03 | Emergency (ER) | payer OTHER ==
[2018-09-09 20:04] VITALS: BMI 32.3
[2018-09-09] MEDS ORDERED: TDAP Vaccine 0.5 mL Syr IM ONE (21:37)
--- NOTE | 2018-09-09 22:56 | ED PDOC ---
Arrival/HPI - General Chief Complaint: Foreign Body Time Seen by Provider: 09/09/18 20:24 Historian: Patient, Personal Trainer - History of Present Illness Narrative History of Present Illness (Text): 53 y/o female with PMH of HTN and asthma presents to the ED c/o left foot pain x 5 days. Pt states she thinks she may have stepped on something through her shoe. Able to ambulate although with pain. Unknown last tetanus. Denies fever, chills, wound drainage/redness/warmth, nausea, dizziness, extremity numbness/weakness/paresthesias, or any other associated symptoms. Past Medical History - Provider Review Nursing Documentation Reviewed: Yes - Infectious Disease Hx of Infectious Diseases: None - Tetanus Immunization Tetanus Immunization: Unknown - Reproductive Menopause: Yes - Cardiac Hx Cardiac Disorders: Yes Hx Hypertension: Yes - Pulmonary Hx Respiratory Disorders: Yes Hx Asthma: Yes - Neurological Hx Neurological Disorder: No - HEENT Hx HEENT Disorder: No - Renal Hx Renal Disorder: No - Endocrine/Metabolic Hx Endocrine Disorders: No - Hematological/Oncological Hx Blood Disorders: No - Integumentary Hx Dermatological Disorder: No - Musculoskeletal/Rheumatological Hx Musculoskeletal Disorders: Yes Hx Arthritis: Yes - Gastrointestinal Hx Gastrointestinal Disorders: No - Genitourinary/Gynecological Hx Genitourinary Disorders: No - Psychiatric Hx Psychophysiologic Disorder: No Hx Depression: No Hx Emotional Abuse: No Hx Physical Abuse: No Hx Substance Use: No - Past Surgical History Past Surgical History: No Previous - Surgical History Other/Comment: BREAST BX - Anesthesia Hx Anesthesia: No Hx Anesthesia Reactions: No Hx Malignant Hyperthermia: No - Suicidal Assessment Feels Threatened In Home Enviroment: No Family/Social History - Physician Review Nursing Documentation Reviewed: Yes Family/Social History: No Known Family HX Smoking Status: Never Smoked Hx Alcohol Use: No Hx Substance Use: No Hx Substance Use Treatment: No Allergies/Home Meds Allergies/Adverse Reactions: Allergies No Known Allergies Allergy (Verified 09/09/18 20:15) Home Medications: Home Meds Medication Instructions Recorded Confirmed Montelukast [Singulair] 10 mg PO DAILY 08/01/14 09/09/18 Lisinopril [Zestril] 20 mg PO DAILY 03/22/18 09/09/18 Review of Systems - Review of Systems Constitutional: Normal. absent: Fevers Eyes: Normal. absent: Vision Changes Respiratory: Normal. absent: SOB Cardiovascular: Normal. absent: Chest Pain Gastrointestinal: Normal. absent: Abdominal Pain, Nausea, Vomiting Musculoskeletal: Other (left foot pain). absent: Back Pain, Neck Pain Skin: Other (possible left foot FB) Physical Exam Vital Signs Reviewed: Yes Temperature: Afebrile Blood Pressure: Hypertensive Pulse: Regular Respiratory Rate: Normal Appearance: Positive for: Well-Appearing, Non-Toxic, Comfortable Pain Distress: None Mental Status: Positive for: Alert and Oriented X 3 - Systems Exam Head: Present: Atraumatic, Normocephalic Pupils: Present: PERRL Extroacular Muscles: Present: EOMI Conjunctiva: Present: Normal Mouth: Present: Moist Mucous Membranes Neck: Present: Normal Range of Motion Respiratory/Chest: Present: Clear to Auscultation, Good Air Exchange. No: Respiratory Distress, Accessory Muscle Use Cardiovascular: Present: Regular Rate and Rhythm, Normal S1, S2. No: Murmurs Abdomen: No: Tenderness, Distention, Peritoneal Signs Back: Present: Normal Inspection Upper Extremity: Present: Normal ROM, NORMAL PULSES, Neurovascularly Intact, Capillary Refill < 2s, Other (small opening to plantar surface of 5th MTP, left foot. Unable to visualize FB. No erythema, warmth, drainage). No: Temperature Abnormalties Lower Extremity: Present: Normal Inspection, NORMAL PULSES, Normal ROM, Tenderness (over plantar surface of 5th digit MTP left foot), Neurovascularly Intact. No: Edema, Temperature Abnormalties Neurological: Present: GCS=15, CN II-XII Intact, Speech Normal Skin: Present: Warm, Dry, Normal Color. No: Rashes Psychiatric: Present: Alert, Oriented x 3, Normal Insight, Normal Concentration Medical Decision Making ED Course and Treatment: Initial Plan: * Left Foot XR * Tdap * Toradol Xray read as possible small FB at proximal phalanx 5th digit. Unable to visualize FB on physical exam. FB, if present, has been present for 5+ days. No indication for removal in ED. Advised podiatry and surgery followup. Pt placed in surgical shoe and 4th/5th digits ac taped. Advised on side effects of cipro, advised no strenuous activity for the next week. Neurobiologist service used to ensure understanding. Diagnostic testing results and plan of care discussed with patient. Strict instructions given regarding prescription use, importance of followup, and signs/symptoms to return to ER including numbness, weakness, paresthesias, fever, signs of infection, or any other new/worsening symptoms. Pt verbalized understanding of discussion. Patient is A&Ox3, ambulating with steady gait, with vital signs stable for discharge. - RAD Interpretation Radiology Orders: 09/09/18 20:32 FOOT LEFT 5TH DIGIT (TOE) [RAD] Stat - Medication Orders Current Medication Orders: Discontinued Medications Ketorolac Tromethamine (Toradol) 60 mg IM STAT STA Stop: 09/09/18 21:38 Last Admin: 09/09/18 22:01 Dose: Not Given Non-Admin Reason: Patient Refused Tetanus/Reduced Diphtheria/Acell Pertussis (Boostrix Vaccine Inj) 0.5 ml IM .ONCE ONE Stop: 09/09/18 21:38 Last Admin: 09/09/18 22:00 Dose: 0.5 ml Immunization Registry Document 09/09/18 22:00 SS (Rec: 09/09/18 22:00 SS [id number]) [facility]-Date provided 01/28/18 Disposition/Present on Arrival - Present on Arrival Any Indicators Present on Arrival: No History of DVT/PE: No History of Uncontrolled Diabetes: No Urinary Catheter: No History of Decub. Ulcer: No History Surgical Site Infection Following: None - Disposition Have Diagnosis and Disposition been Completed?: Yes Diagnosis: Foot pain Disposition: HOME/ ROUTINE Disposition Time: 22:53 Patient Plan: Discharge Condition: STABLE Discharge Instructions (ExitCare): Foreign Body in Skin Print Language: CZECH Additional Instructions: Cipro cada 12 horas trang 1 semana Ibuprofeno cada 8 horas segn sea necesario para el dolor, christopher con comida Seguimiento con podologa y ciruga en 2 barbosa. Regrese a la bree de emergencias con cualquier sntoma nuevo o que empeore Prescriptions: Ciprofloxacin HCl [Cipro] 500 mg PO Q12H #14 tab Ibuprofen [Motrin Tab] 600 mg PO Q8 PRN #30 tab PRN Reason: Pain, Moderate (4-7) Referrals: Dave Gutiérrez MD [Staff Provider] - Follow up with primary Podiatry Clinic [Outside] - Follow up with primary Forms: [employer] (Tajik), WORK NOTE
[2018-09-09 23:37] VITALS: BP 161/90; PULSE 67; RESP 18; TEMP 98; O2SAT 99
--- NOTE | 2018-09-10 08:20 | RAD ---
Date of service: 09/09/2018 PROCEDURE: LEFT 5TH DIGIT RADIOGRAPHS HISTORY: r/o FB COMPARISON: Left foot radiographs 09/12/2016. TECHNIQUE: Four views FINDINGS: There is no prominent acute fracture or dislocation involving the left 5th digit/small toe. A punctate radiodensity seen at the lateral posterior base of the proximal phalanx left 5th digit potentially reflecting a tiny avulsion or chip fracture though this could reflect heterotopic soft tissue calcification. Similar focus is seen abdomen approaching the posterior base of the distal phalanx left great toe. Limited hallux valgus deformity. Soft tissues surrounding the 5th digit are unremarkable as well as the visualized left foot. IMPRESSION: A punctate radiodensity at the lateral posterior base of the proximal phalanx left 5th digit may reflect a tiny chip or avulsion fracture or heterotopic soft tissue calcification. No prominent fracture. No subluxation or dislocation appreciable. A similar punctate radiodensity seen related to the base of the distal phalanx great toe. Both appear to be interval findings compared to 09/12/2016 left foot radiographs.
== END 2018-09-09 23:38 | disposition home or self-care (01) ==
LOC: ED 20:03
DX: M79.672 Pain in left foot (principal); Z23 Encounter for immunization